=== PATIENT | male | born 1955 | race Caucasian/White ===

== ENCOUNTER → 2017-12-06 | Outpatient (CLI) | payer OTHER | END | disposition home or self-care (01) | LOC: CFH 14:11 | PROVIDERS: ATTEND Internal Medicine Cardiovascular Disease | DX: I08.1 Rheumatic disorders of both mitral and tricuspid valves (principal); R60.0 Localized edema | CPT/HCPCS: 93306 ==

== ENCOUNTER 2018-07-23 13:29 | Emergency (ER) | payer OTHER ==
[~2018-07-23] VITALS: Ht 172.7 cm; Wt 84.5 kg
[2018-07-23 13:32] VITALS: BP 137/81
[2018-07-23] MEDS ORDERED: HYDROcodone/APAP 5/325 TABLET PO ONE (15:04)
[2018-07-23] MEDS ORDERED: HYDROcodone/APAP 5/325 TABLET ONE (15:06)
== END 2018-07-23 15:13 | disposition home or self-care (01) ==
LOC: ED 14:26
DX: S33.6XXA Sprain of sacroiliac joint, initial encounter (principal); S70.01XA Contusion of right hip, initial encounter; W19.XXXA Unspecified fall, initial encounter; Y93.89 Activity, other specified; Y92.89 Other specified places as the place of occurrence of the external cause; Y99.8 Other external cause status
CPT/HCPCS: 99283

== ENCOUNTER 2018-12-15 11:19 | Outpatient (CLI) | payer OTHER ==
[2018-12-15 13:09] LABS: INTERNATIONAL NORMALIZED RATIO 1.24 (0.93-1.1); PROTHROMBIN TIME 12.9 Seconds (9.6-11.5)
[2018-12-21] MEDS ORDERED: HYDR12.517 PO (15:56)
[2018-12-21] MEDS ORDERED: MELA10TA PO (15:56)
[2018-12-21] MEDS ORDERED: MULT1TAB60 PO (15:56)
[2018-12-21] MEDS ORDERED: OMEP20TA62 PO (15:56)
[2018-12-21] MEDS ORDERED: ZOLP5TAB6 PO (15:56)
[2018-12-21] MEDS ORDERED: AZEL137S4 NAS (15:56)
[2018-12-21] MEDS ORDERED: IBUP-1623 PO (15:56)
[2018-12-21] MEDS ORDERED: FLUT9.9S NAS (15:56)
[2018-12-21] MEDS ORDERED: FEXO1TAB25 PO (15:56)
[2018-12-21] MEDS ORDERED: TAMS-11 PO (15:56)
== END 2018-12-15 23:59 | disposition home or self-care (01) ==
LOC: STAR 11:19
PROVIDERS: ATTEND Orthopaedic Surgery
DX: Z01.818 Encounter for other preprocedural examination (principal); T84.194A Other mechanical complication of internal fixation device of right femur, initial encounter; I25.2 Old myocardial infarction; Z96.641 Presence of right artificial hip joint
CPT/HCPCS: 36415; 83036; 85610; 85730; 87081; 93005

== ENCOUNTER 2018-12-23 05:27 | Inpatient (IN) | payer OTHER ==
[~2018-12-23] VITALS: Ht 172.7 cm; Wt 79.0 kg
[2018-12-24 10:28] VITALS: BP 113/76
== END 2018-12-24 11:55 | disposition home or self-care (01) | DRG 468 ==
LOC: ORIP 05:27 → 4NOR 10:05 → DCLOUNGE 12-24 11:30
PROVIDERS: ADMIT Orthopaedic Surgery; ATTEND Orthopaedic Surgery
PROC: 0SR903A Replacement of Right Hip Joint with Ceramic Synthetic Substitute, Uncemented, Open Approach (ICD-10-PCS; principal; 2018-12-23)
PROC: 0SP90JZ Removal of Synthetic Substitute from Right Hip Joint, Open Approach (ICD-10-PCS; 2018-12-23)
DX: T84.030A Mechanical loosening of internal right hip prosthetic joint, initial encounter (principal); Y83.8 Other surgical procedures as the cause of abnormal reaction of the patient, or of later complication, without mention of misadventure at the time of the procedure; I10 Essential (primary) hypertension; Z96.641 Presence of right artificial hip joint; Y92.89 Other specified places as the place of occurrence of the external cause
CPT/HCPCS: 36415; 72170; 85014; 85018; 86850; 86900; C1713; G0378; J0171; J0690; J1100; J1170; J1885; J2250; J2405; J2704; J2710; J2795; J3010; J3370; J3480; C1762; C1776; J0330; J7050; J7120